=== PATIENT | female | born 1990 | race American Indian/Alaskan Native ===

== ENCOUNTER 2016-06-22 07:19 | Emergency (ER) | payer OTHER ==
[2016-06-22 07:42] VITALS: BP 125/76
--- NOTE | 2016-06-22 19:11 | Emergency Department Report ---
HPI - General Chief Complaint: Urogenital-Female Time Seen by Provider: 06/22/16 08:59 - HPI HPI: 26 y/o female requesting to be check for sexual transmitted disease .pt state she suspected her boyfriend cheating on her .pt denies any complaint at present. ED Past Medical Hx - Past Medical History Previous Medical History?: Yes Additional medical history: Vaginal delivery x 2 - Surgical History Past Surgical History?: No - Social History Smoking Status: Never Smoker Substance Use Type: Alcohol - Medications Home Medications: Home Medications Medication Instructions Recorded Confirmed Last Taken Type No Known Home Medications [No 06/22/16 06/22/16 Unknown History Reported Home Medications] ED Review of Systems ROS: Stated complaint: VAGINAL DISCHARGE Other details as noted in HPI Constitutional: denies: chills, fever Eyes: denies: eye pain, eye discharge, vision change ENT: denies: ear pain, throat pain Respiratory: denies: cough, shortness of breath, wheezing Cardiovascular: denies: chest pain, palpitations Endocrine: no symptoms reported Gastrointestinal: denies: abdominal pain, nausea, diarrhea Genitourinary: denies: urgency, dysuria, discharge Musculoskeletal: denies: back pain, joint swelling, arthralgia Skin: denies: rash, lesions Neurological: denies: headache, weakness, paresthesias Psychiatric: denies: anxiety, depression Hematological/Lymphatic: denies: easy bleeding, easy bruising Physical Exam - Physical Exam Vital Signs: Vital Signs 06/22/16 07:39 Temperature 97.9 F Pulse Rate 91 H Respiratory 16 Rate Blood Pressure 125/76 O2 Sat by Pulse 100 Oximetry Physical Exam: GENERAL: The patient is well-developed and well-nourished. Patient is in NAD. HENT: Normocephalic. Atraumatic. Patient has moist mucous membranes. Throat: No erythema, swelling or exudates. EYES: Extraocular motions are intact, PERRL NECK: Supple. No meningitic signs are noted. There is no adenopathy noted. CHEST/LUNGS: Clear to auscultation bilaterally. No wheezing, rales or rhonchi noted. There is no respiratory distress noted. HEART/CARDIOVASCULAR: Regular rate and rhythm. Normal S1 S2. No murmurs, rubs , clicks, or gallops. ABDOMEN: Abdomen is soft, nontender.. Bowel sounds normoactive. There is no abdominal distention. Negative rebound tenderness. : Deferred. SKIN: There is no rash. There is no edema. There is no diaphoresis. NEURO: The patient is A&Ox3. The patient has no focal neurologic deficits. MUSCULOSKELETAL: There is no tenderness or deformity. There is no limitation range of motion. PSYCH: Pt has appropriate mood and affect. ED Course Vital Signs 06/22/16 07:39 Temperature 97.9 F Pulse Rate 91 H Respiratory 16 Rate Blood Pressure 125/76 O2 Sat by Pulse 100 Oximetry Critical care attestation.: If time is entered above; I have spent that time in minutes in the direct care of this critically ill patient, excluding procedure time. ED Disposition Clinical Impression: Sexually transmissible disease Disposition: MEDICAL SCREENING EXAM-LEFT Is pt being admited?: No Does the pt Need Aspirin: No Condition: Stable Referrals: PRIMARY CARE, [Primary Care Provider] - 3-5 Days
== END 2016-06-22 09:17 | disposition left against medical advice (07) ==
LOC: ED 07:19
DX: A64 Unspecified sexually transmitted disease (principal); N89.8 Other specified noninflammatory disorders of vagina; Z53.21 Procedure and treatment not carried out due to patient leaving prior to being seen by health care provider

== ENCOUNTER 2017-05-04 19:07 | Emergency (ER) | payer OTHER ==
[2017-05-04] MEDS ORDERED: PROVENTIL IH ONE (19:34)
[2017-05-04 20:48] LABS: Basophils % (Auto) 0.5 % (0.0-1.8); Eosinophils % (Auto) 10.5 % (0.0-4.3); Hematocrit 42.4 % (30.3-42.9); Hemoglobin 13.4 gm/dl (10.1-14.3); Mean Corpuscular HGB Conc 32 % (30-34); Mean Corpuscular Volume 74 fl (79-97); Platelet Count 221 K/mm3 (140-440); Red Blood Count 5.76 M/mm3 (3.65-5.03); Red Cell Distribution Width 14.4 % (13.2-15.2); White Blood Count 11.7 K/mm3 (4.5-11.0)
[2017-05-04 21:06] LABS: Mean Corpuscular Hemoglobin 23 pg (28-32)
[2017-05-04 21:10] LABS: Anion Gap 18 mmol/L; BUN/Creatinine Ratio 14; Blood Urea Nitrogen 14 mg/dL (7-17); Calcium 8.9 mg/dL (8.4-10.2); Carbon Dioxide 26 mmol/L (22-30); Chloride 100.7 mmol/L (98-107); Glucose 115 mg/dL (65-100); Potassium 4.2 mmol/L (3.6-5.0); Sodium 140 mmol/L (137-145)
--- NOTE | 2017-05-05 00:33 | XRay Report ---
FINAL REPORT PROCEDURE: XR CHEST ROUTINE 2V TECHNIQUE: PA and lateral chest radiographs were obtained. CPT 95850 HISTORY: Dyspnea COMPARISON: No prior studies are available for comparison. FINDINGS: Heart: Normal. Mediastinum/Vessels: Normal. Lungs/Pleural space: Normal. Bony thorax: No acute osseous abnormality. Other: IMPRESSION: Normal examination.
[2017-05-05] MEDS ORDERED: PROVENTIL IH ONE ×2 (01:47→01:49)
[2017-05-05] MEDS ORDERED: MAGNESIUM SULFATE 2GM/50ML 2 GM/50 ML BAG IV ONE (01:48)
--- NOTE | 2017-05-05 02:41 | Emergency Department Report ---
HPI - General Chief Complaint: Dyspnea/Respdistress Time Seen by Provider: 05/05/17 01:47 - HPI HPI: This is a 27 year-old female presents to the emergency department with complaint of a one-day history of some shortness of breath, wheezing and some chest tightness. She denies any past medical history. She denies any tobacco abuse. She has an albuterol inhaler that she has been using without much relief. No recent travel or sick contacts at home. Patient says that she was diagnosed with pneumonia back in January and says that she has been having these intermittent episodes of shortness of breath and wheezing since that diagnosis. She denies any fever, nausea, vomiting, back pain or diaphoresis. ED Past Medical Hx - Past Medical History Previous Medical History?: Yes Additional medical history: Vaginal delivery x 2, pnuemonia - Surgical History Past Surgical History?: Yes Additional Surgical History: tubal ligation - Social History Smoking Status: Never Smoker Substance Use Type: None - Medications Home Medications: Home Medications Medication Instructions Recorded Confirmed Last Taken Type ALBUTEROL Inhaler [ProAir HFA 2 puff IH QID PRN #1 inhalation 05/05/17 Unknown Rx Inhaler] predniSONE [Deltasone] 20 mg PO QDAY #5 tab 05/05/17 Unknown Rx ED Review of Systems ROS: Stated complaint: SHORT OF BREATH/CHEST PAIN Other details as noted in HPI Comment: All other systems reviewed and negative Constitutional: denies: chills, fever Eyes: denies: eye pain, eye discharge, vision change ENT: denies: ear pain, throat pain Respiratory: cough, shortness of breath, wheezing Cardiovascular: chest pain. denies: syncope Gastrointestinal: denies: abdominal pain, nausea, diarrhea Genitourinary: denies: urgency, dysuria, discharge Musculoskeletal: denies: back pain, joint swelling, arthralgia Skin: denies: rash, lesions Neurological: denies: headache, weakness, paresthesias Physical Exam - Physical Exam Vital Signs: Vital Signs 05/04/17 05/04/17 05/04/17 19:25 21:40 22:05 Temperature 97.9 F Pulse Rate 126 H Pulse Rate [ 85 90 Throughout] Respiratory 20 Rate Respiratory 22 20 Rate [ Throughout] Blood Pressure 125/85 Blood Pressure [Right] O2 Sat by Pulse 93 Oximetry 05/05/17 05/05/17 01:39 02:03 Temperature 98.1 F Pulse Rate 99 H Pulse Rate [ 87 Throughout] Respiratory 22 Rate Respiratory 23 Rate [ Throughout] Blood Pressure Blood Pressure 121/77 [Right] O2 Sat by Pulse 99 Oximetry Physical Exam: GENERAL: The patient is well-developed well-nourished. HENT: Normocephalic. Atraumatic. Patient has moist mucous membranes. EYES: Extraocular motions are intact. Pupils equal reactive to light bilaterally. NECK: Supple. Trachea is midline. CHEST/LUNGS: Mild to moderate wheezing throughout the chest. There is tachypnea but no excessive muscle use.. There is no respiratory distress noted. HEART/CARDIOVASCULAR: Regular. There is mild tachycardia. There is no gallop rub or murmur. ABDOMEN: Abdomen is soft, nontender. Patient has normal bowel sounds. There is no abdominal distention. SKIN: Skin is warm and dry. NEURO: The patient is awake, alert, and oriented. The patient is cooperative. The patient has no focal neurologic deficits. The patient has normal speech. MUSCULOSKELETAL: There is no tenderness or deformity. There is no limitation range of motion. There is no evidence of acute injury. ED Course Vital Signs 05/04/17 05/04/17 05/04/17 19:25 21:40 22:05 Temperature 97.9 F Pulse Rate 126 H Pulse Rate [ 85 90 Throughout] Respiratory 20 Rate Respiratory 22 20 Rate [ Throughout] Blood Pressure 125/85 Blood Pressure [Right] O2 Sat by Pulse 93 Oximetry 05/05/17 05/05/17 01:39 02:03 Temperature 98.1 F Pulse Rate 99 H Pulse Rate [ 87 Throughout] Respiratory 22 Rate Respiratory 23 Rate [ Throughout] Blood Pressure Blood Pressure 121/77 [Right] O2 Sat by Pulse 99 Oximetry ED Medical Decision Making - Lab Data Result diagrams: 05/04/17 20:45 05/04/17 20:45 - EKG Data -: EKG Interpreted by Me EKG shows normal: sinus rhythm, axis, intervals, QRS complexes, ST-T waves Rate: tachycardia (102 bpm) - EKG Data When compared to previous EKG there are: previous EKG unavailable Interpretation: normal EKG (with mild tachycardia) - Radiology Data Radiology results: image reviewed interpreted by me: Chest x-ray does not show any acute process. There are no pleural effusions, obvious pneumonia and there is no pneumothorax. - Medical Decision Making 27-year-old female presents with some shortness of breath, wheezing and some chest tightness. She does not have any significant past medical history. She does have some mild to moderate bronchospasm upon arrival. She was given breathing treatments, steroids. Chest x-ray does not show any acute process. EKG does not show any signs of ST elevation NC, ischemia or dysrhythmia. Labs have been mostly unremarkable including negative troponins 2 and a negative d- dimer. She had some mild tachycardia upon arrival but otherwise the vital signs were stable throughout her ED course included being afebrile. She was reevaluated multiple times of a multiple hours and says she is feeling much better and asking for discharge home. I believe the chest tightness is related to the bronchospasm and less likely to be cardiac in origin. She is low on the Meyer score criteria and has a LAKISHA score of 0. She will go home on day course of steroids and was given an albuterol inhaler. She will return to the ER with any worsening of her symptoms or any acute distress. - Differential Diagnosis asthma, bronchitis, pneumonia, NC, PE Critical Care Time: No Critical care attestation.: If time is entered above; I have spent that time in minutes in the direct care of this critically ill patient, excluding procedure time. ED Disposition Clinical Impression: Bronchospasm, Chest tightness Disposition: DC-01 TO HOME OR SELFCARE Is pt being admited?: No Condition: Stable Instructions: Chest Pain (ED), Bronchospasm (ED) Additional Instructions: Please follow-up with a primary care physician in the next few days. Return to the emergency Department with any worsening of your symptoms or any acute distress. Prescriptions: ALBUTEROL Inhaler [ProAir HFA Inhaler] 2 puff IH QID PRN #1 inhalation PRN Reason: Shortness Of Breath predniSONE [Deltasone] 20 mg PO QDAY #5 tab Referrals: MONSERRAT MINER MD [Primary Care Provider] - 3-5 Days VIDYA LUNA MD [Staff Physician] - 3-5 Days [facility] [Outside] - 3-5 Days Time of Disposition: 04:45
[2017-05-05] MEDS ORDERED: TORADOL IV ONE (03:06)
[2017-05-05 05:36] VITALS: BP 125/78
== END 2017-05-05 05:37 | disposition home or self-care (01) ==
LOC: ED 19:07
DX: J98.01 Acute bronchospasm (principal)
CPT/HCPCS: 36415; 71020; 80048; 84484; 85025; 85379; 93005; 93010; 94640; 96365; 96375; 99284; J1885; J2930; J3475

== ENCOUNTER 2017-12-19 12:17 | Inpatient (IN) | payer OTHER ==
[2017-12-19] MEDS ORDERED: PROVENTIL IH ONE ×2 (12:19→20:07)
[2017-12-19] MEDS ORDERED: S2 RACEPINEPHRINE 2.25% IH ONE (12:24)
[2017-12-19] MEDS ORDERED: DUONEB *Not for PRN Use IH ONE (12:24)
--- NOTE | 2017-12-19 12:25 | Emergency Department Report ---
ED Asthma HPI - General Stated Complaint: ASTHMA ATTACK Time Seen by Provider: 12/19/17 12:19 - History of Present Illness Initial Comments: Patient is 27 years old female with history of asthma. Patient brought into the ER in acute respiratory distress started 1 hour ago. Patient boyfriend stated that she used albuterol breathing treatment that no help. Initial oxygen saturation in the ER is 85% on room air. Patient immediately put on oxygen, DuoNeb, solumedrol IV and racemic epi. Patient denied any history of intubation before. MD Complaint: "asthma attack", shortness of breath, wheezing -: hour(s) Asthma History: childhood onset Severity: severe Associated Symptoms: none Treatments Prior to Arrival: inhaled bronchodilator - Related Data Current Asthma Therapy: inhaled bronchodilator Previous Rx's Medication Instructions Recorded Last Taken Type ALBUTEROL Inhaler [ProAir HFA 2 puff IH QID PRN #1 inhalation 05/05/17 Unknown Rx Inhaler] predniSONE [Deltasone] 20 mg PO QDAY #5 tab 05/05/17 Unknown Rx Allergies Allergy/AdvReac Type Severity Reaction Status Date / Time No Known Allergies Allergy Unverified 06/22/16 07:42 ED Review of Systems ROS: Stated complaint: ASTHMA ATTACK Other details as noted in HPI Comment: All other systems reviewed and negative Constitutional: denies: chills, fever Respiratory: shortness of breath, SOB with exertion, SOB at rest, wheezing. denies: cough Cardiovascular: palpitations. denies: chest pain Gastrointestinal: denies: abdominal pain, nausea, vomiting Neurological: denies: headache, weakness, numbness, paresthesias, confusion, abnormal gait ED Past Medical Hx - Past Medical History Hx Asthma: Yes Additional medical history: Vaginal delivery x 2, pnuemonia - Surgical History Additional Surgical History: tubal ligation - Social History Smoking Status: Never Smoker Substance Use Type: None - Medications Home Medications: Home Medications Medication Instructions Recorded Confirmed Last Taken Type ALBUTEROL Inhaler [ProAir HFA 2 puff IH QID PRN #1 inhalation 05/05/17 Unknown Rx Inhaler] predniSONE [Deltasone] 20 mg PO QDAY #5 tab 05/05/17 Unknown Rx ED Physical Exam - General Limitations: No Limitations General appearance: alert, in distress - Head Head exam: Present: atraumatic, normocephalic, normal inspection - Eye Eye exam: Present: normal appearance - ENT ENT exam: Present: normal exam, normal orophraynx, mucous membranes moist - Neck Neck exam: Present: normal inspection, full ROM. Absent: tenderness, meningismus, lymphadenopathy, thyromegaly - Respiratory Respiratory exam: Present: respiratory distress, wheezes, rhonchi, accessory muscle use, decreased breath sounds, prolonged expiratory. Absent: stridor - Cardiovascular Cardiovascular Exam: Present: tachycardia - GI/Abdominal GI/Abdominal exam: Present: soft. Absent: distended, tenderness, guarding, rebound, rigid, normal bowel sounds, organomegaly, mass, bruit, pulsatile mass - Extremities Exam Extremities exam: Present: normal inspection, full ROM, normal capillary refill - Back Exam Back exam: Present: normal inspection, full ROM. Absent: CVA tenderness (R), muscle spasm, paraspinal tenderness - Neurological Exam Neurological exam: Present: alert, oriented X3, CN II-XII intact, normal gait, reflexes normal - Skin Skin exam: Present: warm, intact, normal color ED Course Vital Signs 12/19/17 12/19/17 12/19/17 12:19 12:28 13:00 Pulse Rate 91 H Pulse Rate [ 93 H 94 H Anterior Bilateral Throughout] Respiratory 22 Rate Respiratory 26 H 20 Rate [Anterior Bilateral Throughout] Blood Pressure 125/89 O2 Sat by Pulse 100 Oximetry ED Medical Decision Making - Lab Data Result diagrams: 12/19/17 12:15 12/19/17 12:15 - Medical Decision Making Discussed the patient with Dr. Croft, he agreed to admit to his service. Critical Care Time: Yes Critical care time in (mins) excluding proc time.: 30 Critical care attestation.: If time is entered above; I have spent that time in minutes in the direct care of this critically ill patient, excluding procedure time. ED Disposition Clinical Impression: Asthma exacerbation attacks Disposition: OP ADMIT IP TO THIS HOSP Is pt being admited?: Yes Condition: Stable
[2017-12-19 12:43] LABS: Basophils # (Auto) 0.1 K/mm3 (0.0-0.1); Basophils % (Auto) 0.7 % (0.0-1.8); Eosinophils # (Auto) 0.7 K/mm3 (0.0-0.4); Hematocrit 41.9 % (30.3-42.9); Hemoglobin 13.3 gm/dl (10.1-14.3); Lymphocytes # (Auto) 2.9 K/mm3 (1.2-5.4); Lymphocytes % (Auto) 30.8 % (13.4-35.0); Mean Corpuscular HGB Conc 32 % (30-34); Mean Corpuscular Hemoglobin 24 pg (28-32); Mean Corpuscular Volume 74 fl (79-97); Monocytes # (Auto) 0.6 K/mm3 (0.0-0.8); Monocytes % (Auto) 6.4 % (0.0-7.3); Platelet Count 175 K/mm3 (140-440); Red Blood Count 5.65 M/mm3 (3.65-5.03); Red Cell Distribution Width 14.3 % (13.2-15.2)
[2017-12-19] MEDS ORDERED: MAGNESIUM SULFATE 2GM/50ML 2 GM/50 ML BAG IV ONE (12:51)
[2017-12-19 13:24] LABS: BUN/Creatinine Ratio 10; Blood Urea Nitrogen 8 mg/dL (7-17); Calcium 8.8 mg/dL (8.4-10.2); Hemolysis Index 86
--- NOTE | 2017-12-19 13:35 | XRay Report ---
FINAL REPORT EXAM: XR CHEST 1V AP HISTORY: Asthma TECHNIQUE: Frontal chest x-ray. PRIORS: Chest x-ray May 04, 2017. FINDINGS: Cardiac silhouette is within normal limits. Aortic calcifications. There is no effusion. There is no pneumothorax. There is no consolidation. There are no suspicious osseous lesions. IMPRESSION: No acute cardiopulmonary findings.
[2017-12-19] MEDS ORDERED: PNEUMOVAX 23 IM ONE (18:43)
[2017-12-19] MEDS ORDERED: ATROVENT IH ONE (20:07)
--- NOTE | 2017-12-19 20:28 | History and Physical Report ---
History of Present Illness Date of examination: 12/19/17 Date of admission: 12/19/17 15:46 Chief complaint: CC Increased SOB and Wheezing for few hours History of present illness: History of Present Illness: 27 years old female with history of asthma brought into the ER in acute respiratory distress started couple of hours ago. Patient boyfriend stated that she used albuterol breathing treatment with no help. Initial oxygen saturation in the ER is 85% on room air. Patient immediately put on oxygen, DuoNeb, solumedrol IV and racemic epi. Patient denied any history of intubation before.some improvement in ER.Patient has Nebulizer machine at home. MD Complaint: "asthma attack", shortness of breath, wheezing -: hour(s) Asthma History: childhood onset Severity: severe Associated Symptoms: none Treatments Prior to Arrival: inhaled bronchodilator Patient not on singulair Past Medical History Hx Asthma: Yes Additional medical history: Vaginal delivery x 2, pnuemonia Surgical History Additional Surgical History: tubal ligation Social History Smoking Status: Never Smoker Substance Use Type: None Medications Home Medications: Home Medications Medication Instructions Recorded Confirmed Last Taken Type ALBUTEROL Inhaler [ProAir HFA 2 puff IH QID PRN #1 inhalation 05/05/17 Unknown Rx Inhaler] predniSONE [Deltasone] 20 mg PO QDAY #5 tab 05/05/17 Unknown Rx Review of Systems ROS: Stated complaint: ASTHMA ATTACK Other details as noted in HPI Comment: All other systems reviewed and negative Constitutional: denies: chills, fever Respiratory: shortness of breath, SOB with exertion, SOB at rest, wheezing. denies: cough Cardiovascular: palpitations. denies: chest pain Gastrointestinal: denies: abdominal pain, nausea, vomiting Neurological: denies: headache, weakness, numbness, paresthesias, confusion, abnormal gait Medications and Allergies Allergies Allergy/AdvReac Type Severity Reaction Status Date / Time No Known Allergies Allergy Unverified 06/22/16 07:42 Home Medications Medication Instructions Recorded Confirmed Last Taken Type ALBUTEROL Inhaler [ProAir HFA 2 puff IH QID PRN #1 inhalation 05/05/17 Rx Inhaler] 1 ALBUTEROL NEB's 12/19/17 12/19/17 09:00 History Breo Ellipta 100-25 Mcg INH 12/19/17 1 Day Ago History ~12/18/17 1 puff Fluticasone/Vilanterol [Breo 1 each IH 12/19/17 12/18/17 History Ellipta 100-25 Mcg INH] 1 Incruse Ellipta 12/19/17 12/19/17 History 1 Active Meds: Active Medications Pneumococcal Polyvalent Vaccine (Pneumovax 23) 0.5 ml IM .ONCE ONE Stop: 12/20/17 12:01 Exam - Constitutional Vitals: Temp Pulse Resp BP Pulse Ox 97.3 F L 94 H 20 130/87 97 12/19/17 18:13 12/19/17 18:13 12/19/17 18:13 12/19/17 18:13 12/19/17 20:16 General appearance: Present: severe distress - EENT Eyes: Present: PERRL ENT: hearing intact, clear oral mucosa - Neck Neck: Present: supple, normal ROM - Respiratory Respiratory effort: normal Respiratory: bilateral: CTA, rhonchi - Cardiovascular Heart rate: 78 Rhythm: regular Heart Sounds: Present: S1 & S2. Absent: rub, click - Extremities Extremities: no ischemia, pulses intact, pulses symmetrical, No edema Peripheral Pulses: within normal limits - Abdominal General gastrointestinal: Present: soft, non-tender, non-distended, normal bowel sounds Female genitourinary: Present: normal - Rectal Rectal Exam: deferred - Integumentary Integumentary: Present: clear, warm, dry - Musculoskeletal Musculoskeletal: gait normal, strength equal bilaterally - Psychiatric Psychiatric: appropriate mood/affect, intact judgment & insight - Neurologic Neurologic: CNII-XII intact, moves all extremities - Allied Health Allied health notes reviewed: nursing, case management Results - Labs CBC & Chem 7: 12/19/17 12:15 12/19/17 12:15 Labs: Laboratory Last Values WBC 9.4 K/mm3 (4.5-11.0) 12/19/17 12:15 RBC 5.65 M/mm3 (3.65-5.03) H 12/19/17 12:15 Hgb 13.3 gm/dl (10.1-14.3) 12/19/17 12:15 Hct 41.9 % (30.3-42.9) 12/19/17 12:15 MCV 74 fl (79-97) L 12/19/17 12:15 MCH 24 pg (28-32) L 12/19/17 12:15 MCHC 32 % (30-34) 12/19/17 12:15 RDW 14.3 % (13.2-15.2) 12/19/17 12:15 Plt Count 175 K/mm3 (140-440) 12/19/17 12:15 Lymph % (Auto) 30.8 % (13.4-35.0) 12/19/17 12:15 Sargent % (Auto) 6.4 % (0.0-7.3) 12/19/17 12:15 Eos % (Auto) 7.0 % (0.0-4.3) H 12/19/17 12:15 Baso % (Auto) 0.7 % (0.0-1.8) 12/19/17 12:15 Lymph # 2.9 K/mm3 (1.2-5.4) 12/19/17 12:15 Sargent # 0.6 K/mm3 (0.0-0.8) 12/19/17 12:15 Eos # 0.7 K/mm3 (0.0-0.4) H 12/19/17 12:15 Baso # 0.1 K/mm3 (0.0-0.1) 12/19/17 12:15 Seg Neutrophils % 55.1 % (40.0-70.0) 12/19/17 12:15 Seg Neutrophils # 5.2 K/mm3 (1.8-7.7) 12/19/17 12:15 Sodium 139 mmol/L (137-145) 12/19/17 12:15 Potassium 4.2 mmol/L (3.6-5.0) 12/19/17 12:15 Chloride 98.1 mmol/L (98-107) 12/19/17 12:15 Carbon Dioxide 26 mmol/L (22-30) 12/19/17 12:15 Anion Gap 19 mmol/L 12/19/17 12:15 BUN 8 mg/dL (7-17) 12/19/17 12:15 Creatinine 0.8 mg/dL (0.7-1.2) 12/19/17 12:15 Estimated GFR > 60 ml/min 12/19/17 12:15 BUN/Creatinine Ratio 10 % 12/19/17 12:15 Glucose 84 mg/dL (65-100) 12/19/17 12:15 Calcium 8.8 mg/dL (8.4-10.2) 12/19/17 12:15 - Imaging and Cardiology CT scan - chest: report reviewed (NAF) Assessment and Plan Advance Directives: Yes (Full code) VTE prophylaxis?: Chemical Plan of care discussed with patient/family: Yes - Patient Problems (1) Acute respiratory failure Current Visit: Yes Status: Acute Qualifiers: Respiratory failure complication: hypoxia Qualified Code(s): J96.01 - Acute respiratory failure with hypoxia Plan to address problem: Corrected to some extent in ER after Neb treaments and IV Solumedrol. Admit for further improvement and stabilization. (2) Asthma with severe exacerbation Current Visit: Yes Status: Acute Plan to address problem: Patient initiated on IV Solumedrol ---low dose Allbuterol neb treatments and IV Levaquin. Admission for 24 to 48 hours Patient needs Albuterol neb solution packets as prescription at time of discharge Patient also initiated on Singular 10 mg po qd. (3) DVT prophylaxis Current Visit: Yes Status: Acute Plan to address problem: On Lovenox GO prophylaxis-Famotidine initiated
[2017-12-19] MEDS ORDERED: AMBIEN PO PRN (20:29)
[2017-12-19] MEDS ORDERED: ATROVENT IH PRN (20:29)
[2017-12-19] MEDS ORDERED: PROVENTIL IH PRN ×2 (20:29)
[2017-12-19] MEDS ORDERED: SODIUM CHLORIDE FLUSH SYRINGE 10 ML IV PRN (20:29)
[2017-12-19] MEDS ORDERED: MORPHINE IV PRN (20:29)
[2017-12-19] MEDS ORDERED: ZOFRAN IV PRN (20:29)
[2017-12-19] MEDS: SODIUM CHLORIDE FLUSH SYRINGE 10 ML IV SCH (22:00)
[2017-12-19] MEDS: NACL 0.9% 1000 ML 1,000 ML IV SCH (22:14)
[2017-12-19] MEDS: PEPCID IV SCH (22:20)
[2017-12-19] MEDS: BROVANA NEBU IH SCH (22:22)
[2017-12-19] MEDS: TYLENOL PO PRN (22:23)
[2017-12-19] MEDS: LEVAQUIN 500MG/100ML 500 MG/100 ML BAG IV SCH (22:37)
[2017-12-20 10:10] LABS: Alanine Aminotransferase 10 units/L (7-56); Albumin 3.8 g/dL (3.9-5); BUN/Creatinine Ratio 15; Blood Urea Nitrogen 12 mg/dL (7-17); Hemolysis Index 72
[2017-12-20] MEDS: PROVENTIL IH SCH ×4 (10:24→19:21)
[2017-12-20] MEDS: BROVANA NEBU IH SCH ×2 (10:24→19:21)
[2017-12-20] MEDS: PEPCID IV SCH ×2 (10:31→21:44)
[2017-12-20] MEDS: SODIUM CHLORIDE FLUSH SYRINGE 10 ML IV SCH ×2 (10:32→21:53)
[2017-12-20] MEDS ORDERED: PNEUMOVAX 23 IM ONE (12:00)
--- NOTE | 2017-12-20 12:58 | Progress Note ---
Assessment and Plan Assessment and plan: --Acute hypoxic respiratory failure; Secondary to acute exacerbation of bronchial asthma Oxygen to titrate O2 sats to more than 90%, nebulizers, IV steroids IV antibiotics, inhalation steroids and supportive care --Acute exacerbation of bronchial asthma; Oxygen nebulizers and IV steroids and IV antibiotics and inhalation steroids And supportive care --DVT prophylaxis; Lovenox Closely monitor the patient and adjust management as needed Possible discharge in 1-2 days if stable Plan of care reviewed with the patient and her nurse History Interval history: Since seen and examined medical records reviewed Admitted with acute exacerbation of bronchial asthma, acute hypoxic respiratory failure On oxygen and nebulizers IV steroids IV antibiotics and inhalation steroids Patient feels likely but still has some cough and congestion Alert awake oriented 3 Vital signs reviewed Hospitalist Physical - Constitutional Vitals: Temp Pulse Resp BP Pulse Ox 97.9 F 92 H 18 137/93 96 12/20/17 05:19 12/20/17 10:46 12/20/17 10:46 12/20/17 05:19 12/20/17 10:25 General appearance: Present: no acute distress, well-nourished - EENT Eyes: Present: PERRL, EOM intact - Neck Neck: Present: supple, normal ROM - Respiratory Respiratory effort: normal Respiratory: bilateral: diminished, wheezing, negative: rales, rhonchi - Cardiovascular Rhythm: regular Heart Sounds: Present: S1 & S2 - Extremities Extremities: no ischemia, No edema - Abdominal General gastrointestinal: soft, non-tender, non-distended, normal bowel sounds - Integumentary Integumentary: Present: clear, warm - Psychiatric Psychiatric: appropriate mood/affect, cooperative - Neurologic Neurologic: CNII-XII intact, moves all extremities Results - Labs CBC & Chem 7: 12/19/17 12:15 12/20/17 09:23 Labs: Laboratory Last Values WBC 9.4 K/mm3 (4.5-11.0) 12/19/17 12:15 RBC 5.65 M/mm3 (3.65-5.03) H 12/19/17 12:15 Hgb 13.3 gm/dl (10.1-14.3) 12/19/17 12:15 Hct 41.9 % (30.3-42.9) 12/19/17 12:15 MCV 74 fl (79-97) L 12/19/17 12:15 MCH 24 pg (28-32) L 12/19/17 12:15 MCHC 32 % (30-34) 12/19/17 12:15 RDW 14.3 % (13.2-15.2) 12/19/17 12:15 Plt Count 175 K/mm3 (140-440) 12/19/17 12:15 Lymph % (Auto) 30.8 % (13.4-35.0) 12/19/17 12:15 Cache % (Auto) 6.4 % (0.0-7.3) 12/19/17 12:15 Eos % (Auto) 7.0 % (0.0-4.3) H 12/19/17 12:15 Baso % (Auto) 0.7 % (0.0-1.8) 12/19/17 12:15 Lymph # 2.9 K/mm3 (1.2-5.4) 12/19/17 12:15 Cache # 0.6 K/mm3 (0.0-0.8) 12/19/17 12:15 Eos # 0.7 K/mm3 (0.0-0.4) H 12/19/17 12:15 Baso # 0.1 K/mm3 (0.0-0.1) 12/19/17 12:15 Seg Neutrophils % 55.1 % (40.0-70.0) 12/19/17 12:15 Seg Neutrophils # 5.2 K/mm3 (1.8-7.7) 12/19/17 12:15 Sodium 138 mmol/L (137-145) 12/20/17 09:23 Potassium 4.6 mmol/L (3.6-5.0) 12/20/17 09:23 Chloride 102.7 mmol/L (98-107) 12/20/17 09:23 Carbon Dioxide 20 mmol/L (22-30) L 12/20/17 09:23 Anion Gap 20 mmol/L 12/20/17 09:23 BUN 12 mg/dL (7-17) 12/20/17 09:23 Creatinine 0.8 mg/dL (0.7-1.2) 12/20/17 09:23 Estimated GFR > 60 ml/min 12/20/17 09:23 BUN/Creatinine Ratio 15 % 12/20/17 09:23 Glucose 100 mg/dL (65-100) 12/20/17 09:23 Calcium 9.0 mg/dL (8.4-10.2) 12/20/17 09:23 Total Bilirubin 0.70 mg/dL (0.1-1.2) 12/20/17 09:23 AST 24 units/L (5-40) 12/20/17 09:23 ALT 10 units/L (7-56) 12/20/17 09:23 Alkaline Phosphatase 78 units/L (35-129) 12/20/17 09:23 Total Protein 7.0 g/dL (6.3-8.2) 12/20/17 09:23 Albumin 3.8 g/dL (3.9-5) L 12/20/17 09:23 Albumin/Globulin Ratio 1.2 % 12/20/17 09:23
[2017-12-20] MEDS: NACL 0.9% 1000 ML 1,000 ML IV SCH (14:10)
[2017-12-20] MEDS: LEVAQUIN 500MG/100ML 500 MG/100 ML BAG IV SCH (21:52)
[2017-12-20] MEDS ORDERED: LOVENOX SUB-Q SCH (22:00)
[2017-12-20] MEDS ORDERED: SINGULAIR PO SCH (22:00)
[2017-12-21] MEDS: NACL 0.9% 1000 ML 1,000 ML IV SCH (03:30)
[2017-12-21] MEDS: BROVANA NEBU IH SCH (08:22)
[2017-12-21] MEDS: PROVENTIL IH SCH ×3 (08:23→15:39)
[2017-12-21] MEDS: TYLENOL PO PRN (09:44)
[2017-12-21 10:47] LABS: Creatine Kinase MB < 1.0 ng/mL (0.0-4.0)
[2017-12-21] MEDS ORDERED: PEPCID PO SCH (11:00)
[2017-12-21] MEDS: SODIUM CHLORIDE FLUSH SYRINGE 10 ML IV SCH (11:23)
[2017-12-21] MEDS: PEPCID IV SCH (11:26)
--- NOTE | 2017-12-21 13:21 | Discharge Summary ---
Providers - Providers Date of Admission: 12/19/17 15:46 Date of discharge: 12/21/17 Attending physician: JAZMYNE SENIOR Primary care physician: DEALMAKER Hospitalization Reason for admission: worsening shortness of breath and wheezing Condition: Stable Pertinent studies: Chest x-ray; no acute abnormality noted Hospital course: Very pleasant 27-year-old female patient with significant history of bronchial asthma was admitted through emergency room with worsening shortness of breath and wheezing . Patient was initially evaluated and noted to be in acute hypoxic respiratory failure requiring oxygen and initial room air O2 sats was 85% which improved significantly with oxygen, nebs IV steroids and IV antibiotics. With BiPAP as needed Patient was admitted to the hospital placed on high-dose of IV steroids which were gradually tapered Also managed with IV antibiotics for acute pneumonitis/bronchitis, Patient's symptoms significantly improved Patient is comfortable , no new complaints, Vital signs stable, Physical exam prior to discharge is unremarkable Patient is hemodynamically and clinically stable for discharge, no need for further acute inpatient care at this time Discharge diagnosis; --Acute hypoxic respiratory failure --Acute Bronchitis/pneumonitis --Acute exacerbation of bronchial asthma; Disposition: DC- TO HOME OR SELFCARE Time spent for discharge: 32 min Core Measure Documentation - Palliative Care Palliative Care/ Comfort Measures: Not Applicable - Core Measures Any of the following diagnoses?: none Exam - Constitutional Vitals: Temp Pulse Resp BP Pulse Ox 98.0 F 84 18 132/85 98 12/21/17 05:01 12/21/17 11:30 12/21/17 11:30 12/21/17 05:01 12/21/17 08:22 General appearance: Present: no acute distress, well-nourished - EENT Eyes: Present: PERRL, EOM intact - Neck Neck: Present: supple, normal ROM - Respiratory Respiratory effort: normal Respiratory: bilateral: diminished, negative: rales, rhonchi, wheezing - Cardiovascular Rhythm: regular Heart Sounds: Present: S1 & S2 - Extremities Extremities: no ischemia, No edema - Abdominal General gastrointestinal: Present: soft, non-tender, non-distended, normal bowel sounds - Integumentary Integumentary: Present: clear, warm - Musculoskeletal Musculoskeletal: strength equal bilaterally, generalized weakness - Psychiatric Psychiatric: appropriate mood/affect, cooperative - Neurologic Neurologic: CNII-XII intact, moves all extremities Plan Activity: advance as tolerated Diet: regular Additional Instructions: advised 2 days rest Follow up with: PRIMARY CARE,MD [Primary Care Provider] - 3-5 Days Forms: Work/School Release Form Prescriptions: RX: Famotidine [Pepcid] 20 mg PO BID #20 tablet RX: Levofloxacin [Levaquin TAB] 500 mg PO Q24H #5 tablet RX: Montelukast [Singulair] 10 mg PO QHS #30 tablet Prednisone [predniSONE 10 mg (6-Day Pack, 21 Tabs)] 10 mg PO .TAPER #1 tab.ds.pk
[2017-12-21 13:56] VITALS: BP 130/75
[2017-12-21] MEDS ORDERED: LEVAQUIN PO SCH (22:00)
== END 2017-12-21 18:48 | disposition home or self-care (01) | DRG 193 ==
LOC: ED 12:17 → 3A 15:46
PROVIDERS: ADMIT Internal Medicine; ATTEND Internal Medicine
PROC: 3E0234Z Introduction of Serum, Toxoid and Vaccine into Muscle, Percutaneous Approach (ICD-10-PCS; principal; 2017-12-20)
DX: J18.9 Pneumonia, unspecified organism (principal); J96.01 Acute respiratory failure with hypoxia; J45.901 Unspecified asthma with (acute) exacerbation; J20.9 Acute bronchitis, unspecified; Z98.51 Tubal ligation status; Z23 Encounter for immunization
CPT/HCPCS: 36415; 71045; 80048; 80053; 82550; 82553; 84484; 85025; 90732; 93005; 93010; 94640; 94760; J1650; J1956; J2920; J7030

== ENCOUNTER 2018-02-25 13:28 | Emergency (ER) | payer OTHER ==
[2018-02-25 14:41] VITALS: BP 153/102
[2018-02-25] MEDS ORDERED: PROVENTIL IH ONE (15:01)
[2018-02-25] MEDS ORDERED: SOLU-Medrol IV ONE (15:01)
[2018-02-25] MEDS ORDERED: ATROVENT IH ONE (15:02)
[2018-02-25] MEDS ORDERED: NACL 0.9% 1000 ML 1,000 ML IV ONE (15:04)
--- NOTE | 2018-02-25 15:04 | Emergency Department Report ---
Chief Complaint: Adult Asthma Stated Complaint: ASTHMA Time Seen by Provider: 02/25/18 14:54 - HPI History of Present Illness: 27-year-old female presents to the emergency department with complaint of a one-day history of shortness of breath, wheezing, productive cough that she believes is an asthma exacerbation. The patient has a nebulizer with albuterol and she has taken 4 treatments thus far without any relief. She also has some other asthma and/or pulmonary medications that she has been using. She denies any fever. She does have a history of asthma and has required admission in the past but never intubation. No recent travel or sick contacts at home. Her primary care physician is Dr. Marx. - TANJA Review of Systems: Positive for shortness of breath, wheezing, productive cough Negative for chest pain, lower extremity swelling, fever - Exam Vital Signs: Vital Signs 02/25/18 02/25/18 14:38 14:43 Temperature 98.6 F Pulse Rate 128 H 99 H Respiratory 24 24 Rate Blood Pressure 153/102 O2 Sat by Pulse 82 L 99 Oximetry Physical Exam: Patient has moderate wheezing with both inspiration and expiration throughout the chest. There is a productive cough heard during examination. There is some mild tachypnea and the patient sounds very tight. She is awake and alert. MSE screening note: Focused history and physical exam performed. Due to findings the following was ordered: I ordered a CBC, BMP, 2 view chest x-ray, magnesium level. She will have an IV placed and will be given Solu-Medrol. She will have a long breathing treatment prior to reevaluation. ED Disposition for MSE Condition: Stable
[2018-02-25 15:24] LABS: Basophils # (Auto) 0.1 K/mm3 (0.0-0.1); Basophils % (Auto) 0.6 % (0.0-1.8); Eosinophils # (Auto) 1.5 K/mm3 (0.0-0.4); Eosinophils % (Auto) 14.6 % (0.0-4.3); Hematocrit 44.4 % (30.3-42.9); Hemoglobin 14.2 gm/dl (10.1-14.3); Lymphocytes # (Auto) 1.9 K/mm3 (1.2-5.4); Mean Corpuscular HGB Conc 32 % (30-34); Mean Corpuscular Volume 73 fl (79-97); Monocytes # (Auto) 0.7 K/mm3 (0.0-0.8); Monocytes % (Auto) 6.5 % (0.0-7.3); Platelet Count 209 K/mm3 (140-440); Red Blood Count 6.05 M/mm3 (3.65-5.03); Red Cell Distribution Width 14.2 % (13.2-15.2)
[2018-02-25 15:26] LABS: Mean Corpuscular Hemoglobin 24 pg (28-32)
[2018-02-25 15:42] LABS: BUN/Creatinine Ratio 10; Blood Urea Nitrogen 10 mg/dL (7-17); Calcium 9.1 mg/dL (8.4-10.2); Hemolysis Index 7
[2018-02-25] MEDS ORDERED: DUONEB *Not for PRN Use IH ONE (16:59)
--- NOTE | 2018-02-25 17:07 | Emergency Department Report ---
ED Asthma HPI - General Chief Complaint: Adult Asthma Stated Complaint: ASTHMA Time Seen by Provider: 02/25/18 14:54 Source: patient Mode of arrival: Ambulatory Limitations: No Limitations - History of Present Illness Initial Comments: This is a 27-year-old female nontoxic, well nourished in appearance, no acute signs of distress presents to the ED with c/o of acute on chronic asthma exacerbation. Patient is c/o of shortness of breathe, wheezing, and also productive cough. Patient stated she is did take Albuterol IH with no relief. Patient describes cough as yellow mucus production. Patient denies any sick contact. Patient denies any recent travels, long car, recent hospital stays. Patient denies any calf pain or calf tenderness. Patient denies any sick contact. Patient denies any chest pain, short of breath, fever, chills, nausea, vomiting, hemoptysis, numbness, tingling, headache or stiff neck. Past medical history includes asthma. MD Complaint: shortness of breath, wheezing Asthma History: childhood onset Severity: moderate Associated Symptoms: productive cough Treatments Prior to Arrival: inhaled bronchodilator - Related Data Current Asthma Therapy: inhaled bronchodilator Home Medications Medication Instructions Recorded Confirmed Last Taken ALBUTEROL NEB's 1 neb 4XD 12/19/17 12/20/17 12/19/17 09:00 Breo Ellipta 100-25 Mcg INH 1 puff INHALATION DAILY 12/19/17 12/20/17 1 Day Ago ~12/18/17 1 puff Incruse Ellipta 1 puff IH DAILY 12/19/17 12/20/17 12/19/17 03:00 1 Previous Rx's Medication Instructions Recorded Last Taken Type ALBUTEROL Inhaler (OR & NICU) 2 puff IH QID PRN #1 inhalation 05/05/17 12/19/17 Rx [ProAir HFA Inhaler] 1 Famotidine [Pepcid] 20 mg PO BID #20 tablet 12/21/17 Unknown Rx Montelukast [Singulair] 10 mg PO QHS #30 tablet 12/21/17 Unknown Rx Prednisone [predniSONE 10 mg 10 mg PO .TAPER #1 tab.ds.pk 12/21/17 Unknown Rx (6-Day Pack, 21 Tabs)] levoFLOXacin [Levaquin TAB] 500 mg PO Q24H #5 tablet 12/21/17 Unknown Rx ALBUTEROL Inhaler(NF) [VENTOLIN 2 puff IH Q4-6H PRN #1 inha 02/25/18 Unknown Rx Inhaler(NF)] Azithromycin [Zithromax Z-FILEMON] 250 mg PO DAILY #6 tablet 02/25/18 Unknown Rx Prednisone [predniSONE 10 mg 10 mg PO .TAPER #1 tab.ds.pk 02/25/18 Unknown Rx (6-Day Pack, 21 Tabs)] Allergies Allergy/AdvReac Type Severity Reaction Status Date / Time No Known Allergies Allergy Verified 12/20/17 16:31 ED Review of Systems ROS: Stated complaint: ASTHMA Other details as noted in HPI Constitutional: denies: chills, fever Eyes: denies: eye pain, eye discharge, vision change ENT: denies: ear pain, throat pain Respiratory: cough, shortness of breath, wheezing Cardiovascular: denies: chest pain, palpitations Endocrine: no symptoms reported Gastrointestinal: denies: abdominal pain, nausea, diarrhea Genitourinary: denies: urgency, dysuria, discharge Musculoskeletal: denies: back pain, joint swelling, arthralgia Skin: denies: rash, lesions Neurological: denies: headache, weakness, paresthesias Psychiatric: denies: anxiety, depression Hematological/Lymphatic: denies: easy bleeding, easy bruising ED Past Medical Hx - Past Medical History Previous Medical History?: Yes Hx Congestive Heart Failure: No Hx Diabetes: No Hx Asthma: Yes Hx COPD: No Additional medical history: Vaginal delivery x 2, pnuemonia - Surgical History Past Surgical History?: Yes Additional Surgical History: tubal ligation - Social History Smoking Status: Never Smoker - Medications Home Medications: Home Medications Medication Instructions Recorded Confirmed Last Taken Type ALBUTEROL Inhaler (OR & NICU) 2 puff IH QID PRN #1 inhalation 05/05/17 12/20/17 12/19/17 Rx [ProAir HFA Inhaler] 1 ALBUTEROL NEB's 1 neb 4XD 12/19/17 12/20/17 12/19/17 09:00 History Breo Ellipta 100-25 Mcg INH 1 puff INHALATION DAILY 12/19/17 12/20/17 1 Day Ago History ~12/18/17 1 puff Incruse Ellipta 1 puff IH DAILY 12/19/17 12/20/17 12/19/17 03:00 History 1 Famotidine [Pepcid] 20 mg PO BID #20 tablet 12/21/17 Unknown Rx Montelukast [Singulair] 10 mg PO QHS #30 tablet 12/21/17 Unknown Rx Prednisone [predniSONE 10 mg 10 mg PO .TAPER #1 tab.ds.pk 12/21/17 Unknown Rx (6-Day Pack, 21 Tabs)] levoFLOXacin [Levaquin TAB] 500 mg PO Q24H #5 tablet 12/21/17 Unknown Rx ALBUTEROL Inhaler(NF) [VENTOLIN 2 puff IH Q4-6H PRN #1 inha 02/25/18 Unknown Rx Inhaler(NF)] Azithromycin [Zithromax Z-FILEMON] 250 mg PO DAILY #6 tablet 02/25/18 Unknown Rx Prednisone [predniSONE 10 mg 10 mg PO .TAPER #1 tab.ds.pk 02/25/18 Unknown Rx (6-Day Pack, 21 Tabs)] ED Physical Exam - General Limitations: No Limitations General appearance: alert, in no apparent distress - Head Head exam: Present: atraumatic, normocephalic - Eye Eye exam: Present: normal appearance Pupils: Present: normal accommodation - ENT ENT exam: Present: normal exam, mucous membranes moist - Neck Neck exam: Present: normal inspection, full ROM. Absent: tenderness, meningismus, lymphadenopathy - Respiratory Respiratory exam: Present: normal lung sounds bilaterally, wheezes (bilateral upper and lower lobes). Absent: respiratory distress, rales, rhonchi, stridor, chest wall tenderness, accessory muscle use, decreased breath sounds, prolonged expiratory - Cardiovascular Cardiovascular Exam: Present: regular rate, normal rhythm, normal heart sounds. Absent: irregular rhythm, systolic murmur, diastolic murmur, rubs, gallop - GI/Abdominal GI/Abdominal exam: Present: soft - Extremities Exam Extremities exam: Present: normal inspection, full ROM, normal capillary refill - Back Exam Back exam: Present: normal inspection, full ROM - Neurological Exam Neurological exam: Present: alert, oriented X3, normal gait - Psychiatric Psychiatric exam: Present: normal affect, normal mood - Skin Skin exam: Present: warm, dry, intact, normal color. Absent: rash ED Course Vital Signs 02/25/18 02/25/18 14:38 14:43 Temperature 98.6 F Pulse Rate 128 H 99 H Respiratory 24 24 Rate Blood Pressure 153/102 O2 Sat by Pulse 82 L 99 Oximetry - Reevaluation(s) Reevaluation #1: 02/25/18 17:10 Patient is speaking in full sentences with no signs of distress noted. - Consultations Consultation #1: 02/25/18 17:11 Patient has been consulted with Dr. Reece about patient history, physical exam, and labs and examined and screened patient and agrees to ED plan of care and discharge plan of care. ED Medical Decision Making - Lab Data Result diagrams: 02/25/18 15:13 02/25/18 15:13 - Medical Decision Making This is a 27-year-old male that presents with asthma exacerbation and bronchitis. Patient is stable and was examined by me. Chest x-ray has been obtained and dictated by the radiologist within normal limits. Patient is notified of the x-ray report with no questions noted by the patient. Patient did receive DuoNeb and steroids in the ED which patient the symptoms has resolved and subsided. Posttreatment and there is no wheezing upon auscultation. Patient is discharged with albuterol and prednisone and zpak. Patient was referred to Follow-up with a primary care doctor in 3-5 days or if symptoms worsen and continue return to emergency room as soon as possible. At time of discharge, the patient does not seem toxic or ill in appearance. No acute signs of distress noted. Patient agrees to discharge treatment plan of care. No further questions noted by the patient. This chart is dictated with using [employer] Dictation Program Critical care attestation.: If time is entered above; I have spent that time in minutes in the direct care of this critically ill patient, excluding procedure time. ED Disposition Clinical Impression: Bronchitis Asthma exacerbation Qualifiers: Asthma severity: moderate Asthma persistence: unspecified Qualified Code(s): J45.901 - Unspecified asthma with (acute) exacerbation Disposition: DC-01 TO HOME OR SELFCARE Is pt being admited?: No Does the pt Need Aspirin: No Condition: Stable Instructions: Asthma (ED), Acute Bronchitis (ED) Additional Instructions: Follow-up with a primary care doctor in 3-5 days or if symptoms worsen and continue return to emergency room as soon as possible. Prescriptions: ALBUTEROL Inhaler(NF) [VENTOLIN Inhaler(NF)] 2 puff IH Q4-6H PRN #1 inha PRN Reason: Wheezing Azithromycin [Zithromax Z-FILEMON] 250 mg PO DAILY #6 tablet Prednisone [predniSONE 10 mg (6-Day Pack, 21 Tabs)] 10 mg PO .TAPER #1 tab.ds.pk Referrals: PRIMARY CARE, [Primary Care Provider] - 3-5 Days ANICETO RUDOLPH MD [Staff Physician] - 3-[address] [facility] [place] [Outside] - 3-5 Days [facility] [Outside] - 3-5 Days Forms: Work/School Release Form(ED)
--- NOTE | 2018-02-25 17:11 | XRay Report ---
FINAL REPORT EXAM: XR CHEST ROUTINE 2V HISTORY: cough TECHNIQUE: 2 view examination of the chest PRIORS: 12/19/2017 FINDINGS: There is no consolidated pneumonia, pleural effusion, or pneumothorax. Cardiac silhouette size is normal without vascular congestion. The regional skeleton is without acute pathology. Large lung volumes bilaterally again suggest hyperinflation which may reflect pulmonary emphysema. IMPRESSION: Relatively unchanged large lung volumes may reflect pulmonary emphysema. Differential includes asthma
== END 2018-02-25 17:47 | disposition home or self-care (01) ==
LOC: ED 13:28
DX: J45.901 Unspecified asthma with (acute) exacerbation (principal); Z98.51 Tubal ligation status
CPT/HCPCS: 36415; 71046; 80048; 83735; 85025; 94640; 96374; 99284; J2930; J7030; 96361

== ENCOUNTER 2018-09-09 20:14 | Emergency (ER) | payer OTHER ==
--- NOTE | 2018-09-09 20:56 | Emergency Department Report ---
Blank Doc - Documentation Documentation: This is a 28-year-old female that presents with asthma exacerbation. Exam: Lungs clear. no wheezing noted. Vital signs stables. Speaking in full sentences with no signs of distress noted. This initial assessment/diagnostic orders/clinical plan/treatment(s) is/are subject to change based on patient's health status, clinical progression and re- assessment by fellow clinical providers in the ED. Further treatment and workup at subsequent clinical providers discretion. Patient/guardians urged not to elope from the ED as their condition may be serious if not clinically assessed and managed. Initial orders include: 1- Patient sent to [facility] for further evaluation and treatment 2- CXR
[2018-09-09 20:57] VITALS: BP 132/84
--- NOTE | 2018-09-09 21:53 | XRay Report ---
PROCEDURE: CHEST 2 VIEW TECHNIQUE: Frontal and lateral views HISTORY: Wheezing COMPARISONS: April 15, 2018 . FINDINGS: Heart: Normal. Mediastinum/Vessels: Normal. Lungs/Pleural space: Lungs are hyperexpanded. There is no focal infiltrate.. Bony thorax: No acute osseous abnormality. IMPRESSION: Hyperexpansion suggesting COPD or asthma. No focal infiltrate . This document is electronically signed by Ja Chu MD., September 09 2018 09:51:48 PM ET
--- NOTE | 2018-09-10 00:11 | Emergency Department Report ---
ED Asthma HPI - General Chief Complaint: Adult Asthma Stated Complaint: ASTHMA/SHERRIE Time Seen by Provider: 09/09/18 20:54 Source: patient Mode of arrival: Ambulatory Limitations: No Limitations - History of Present Illness Initial Comments: Pt is a 28 yo female who presents to the ED with c/o asthma exacerbation that began earlier today. She states she took two nebulizer treatments at home and used her inhaler. She has associated dry cough and congestion. She denies any fever, sore throat, or any other sx. She denies any sick contacts. She states she has not seen a primary care doctor in a "long time" due to lack of insurance. - Related Data Home Medications Medication Instructions Recorded Confirmed Last Taken Incruse Ellipta 1 puff IH DAILY 12/19/17 04/12/18 12/19/17 03:00 1 Valacyclovir HCl [Valtrex] 500 mg PO QDAY 04/12/18 04/12/18 Unknown Previous Rx's Medication Instructions Recorded Last Taken Type Albuterol Sulfate [Albuterol 0.63% 0.63 mg IH TID PRN #120 ml 09/10/18 Unknown Rx NEBS] Albuterol Sulfate [Ventolin HFA] 2 puff IH Q4-6H PRN #1 hfa.aer.ad 09/10/18 Unknown Rx Cetirizine HCl [ZyrTEC] 10 mg PO DAILY #30 tab.rapdis 09/10/18 Unknown Rx Montelukast [Singulair] 10 mg PO QHS #30 tablet 09/10/18 Unknown Rx Prednisone [predniSONE 10 mg 10 mg PO .TAPER #1 tab.ds.pk 09/10/18 Unknown Rx (6-Day Pack, 21 Tabs)] guaiFENesin DM [Guaifenesin Dm 20 ml PO Q4H PRN #1 bottle 09/10/18 Unknown Rx Syrup] Allergies Allergy/AdvReac Type Severity Reaction Status Date / Time No Known Allergies Allergy Verified 04/12/18 08:12 ED Review of Systems ROS: Stated complaint: ASTHMA/SHERRIE Other details as noted in HPI Comment: All other systems reviewed and negative ED Past Medical Hx - Past Medical History Previous Medical History?: Yes Hx Asthma: Yes Additional medical history: Vaginal delivery x 2, pnuemonia - Surgical History Past Surgical History?: Yes Additional Surgical History: tubal ligation - Social History Smoking Status: Never Smoker Substance Use Type: None - Medications Home Medications: Home Medications Medication Instructions Recorded Confirmed Last Taken Type Incruse Ellipta 1 puff IH DAILY 12/19/17 04/12/18 12/19/17 03:00 History 1 Valacyclovir HCl [Valtrex] 500 mg PO QDAY 04/12/18 04/12/18 Unknown History Albuterol Sulfate [Albuterol 0.63% 0.63 mg IH TID PRN #120 ml 09/10/18 Unknown Rx NEBS] Albuterol Sulfate [Ventolin HFA] 2 puff IH Q4-6H PRN #1 hfa.aer.ad 09/10/18 Unknown Rx Cetirizine HCl [ZyrTEC] 10 mg PO DAILY #30 tab.rapdis 09/10/18 Unknown Rx Montelukast [Singulair] 10 mg PO QHS #30 tablet 09/10/18 Unknown Rx Prednisone [predniSONE 10 mg 10 mg PO .TAPER #1 tab.ds.pk 09/10/18 Unknown Rx (6-Day Pack, 21 Tabs)] guaiFENesin DM [Guaifenesin Dm 20 ml PO Q4H PRN #1 bottle 09/10/18 Unknown Rx Syrup] ED Physical Exam - General Limitations: No Limitations General appearance: alert, in no apparent distress - Head Head exam: Present: atraumatic, normocephalic - Eye Eye exam: Present: normal appearance - ENT ENT exam: Present: normal orophraynx, mucous membranes moist - Respiratory Respiratory exam: Present: normal lung sounds bilaterally, other (no wheezing on auscultation ). Absent: respiratory distress, wheezes, rales, rhonchi, stridor, chest wall tenderness, accessory muscle use, decreased breath sounds, prolonged expiratory - Cardiovascular Cardiovascular Exam: Present: regular rate, normal rhythm, normal heart sounds. Absent: systolic murmur, rubs, gallop - Neurological Exam Neurological exam: Present: alert, oriented X3 - Psychiatric Psychiatric exam: Present: normal affect, normal mood - Skin Skin exam: Present: warm, dry, intact ED Course Vital Signs 09/09/18 20:54 Temperature 98 F Pulse Rate 98 H Respiratory 20 Rate Blood Pressure 132/84 ED Medical Decision Making - Radiology Data Radiology results: report reviewed HISTORY: Wheezing COMPARISONS: April 15, 2018 . FINDINGS: Heart: Normal. Mediastinum/Vessels: Normal. Lungs/Pleural space: Lungs are hyperexpanded. There is no focal infiltrate.. Bony thorax: No acute osseous abnormality. IMPRESSION: Hyperexpansion suggesting COPD or asthma. No focal infiltrate . This document is electronically signed by Ja Chu MD., September 09 2018 09:51:48 PM ET - Medical Decision Making Pt is a 28 yo female who presents to the ED with c/o asthma exacerbation that began earlier today. She states she took two nebulizer treatments at home and used her inhaler. She has associated dry cough and congestion. She denies any fever, sore throat, or any other sx. She denies any sick contacts. She states she has not seen a primary care doctor in a "long time" due to lack of insurance. On examination pt has no wheezing, no respiratory distress, good air movement. VSS. CXR with hyperinflation otherwise no acute process. Will refill asthma medications and give her zyrtec. Asked pt to please be seen by primary care office at either [facility] or one of the clinics listed on the [facility] resources for further management of her asthma and for future refills of her prescriptions. Advised to return to the ED for any new or worsening symptoms. Pt given good rx card for her prescriptions. - Differential Diagnosis Asthma exacerbation, URI, Viral syndrome, PNA, Seasonal allergies Critical care attestation.: If time is entered above; I have spent that time in minutes in the direct care of this critically ill patient, excluding procedure time. ED Disposition Clinical Impression: Seasonal allergies Asthma exacerbation Qualifiers: Asthma severity: mild Asthma persistence: intermittent Qualified Code(s): J45.21 - Mild intermittent asthma with (acute) exacerbation Disposition: DC-01 TO HOME OR SELFCARE Is pt being admited?: No Does the pt Need Aspirin: No Condition: Stable Instructions: Asthma (ED), Allergies (ED) Additional Instructions: Please follow up with a primary care doctor in the next 2 days. Take medication as prescribed. Return to the emergency room for any new or worsening symptoms. Prescriptions: Montelukast [Singulair] 10 mg PO QHS #30 tablet Albuterol Sulfate [Albuterol 0.63% NEBS] 0.63 mg IH TID PRN #120 ml PRN Reason: Wheezing guaiFENesin DM [Guaifenesin Dm Syrup] 20 ml PO Q4H PRN #1 bottle PRN Reason: Cough Prednisone [predniSONE 10 mg (6-Day Pack, 21 Tabs)] 10 mg PO .TAPER #1 tab.ds.pk Albuterol Sulfate [Ventolin HFA] 2 puff IH Q4-6H PRN #1 hfa.aer.ad PRN Reason: Shortness Of Breath Cetirizine HCl [ZyrTEC] 10 mg PO DAILY #30 tab.rapdis Referrals: VINAY BUCKLEY MD [Primary Care Provider] - 2-3 Days Time of Disposition: 00:09 Print Language: ALBANIAN
== END 2018-09-10 00:12 | disposition home or self-care (01) ==
LOC: ED 20:14
DX: J45.901 Unspecified asthma with (acute) exacerbation (principal); J30.2 Other seasonal allergic rhinitis; Z98.51 Tubal ligation status
CPT/HCPCS: 71046